=== PATIENT | female | born 1985 | race Caucasian/White ===

== ENCOUNTER → 2019-09-02 | Outpatient (CLI) | payer BC ==
--- NOTE | 2019-09-02 12:52 | RADIOLOGY REPORT (SQ) ---
EXAM DESCRIPTION: CHEST PA/LATERAL IMAGES COMPLETED DATE/TIME: 09/02/2019 12:16 pm REASON FOR STUDY: OTHER CHEST PAIN COMPARISON: None. EXAM PARAMETERS: NUMBER OF VIEWS: two views TECHNIQUE: Digital Frontal and Lateral radiographic views of the chest acquired. RADIATION DOSE: NA LIMITATIONS: none FINDINGS: LUNGS AND PLEURA: No opacities, masses or pneumothorax. No pleural effusion. MEDIASTINUM AND HILAR STRUCTURES: No masses or contour abnormalities. HEART AND VASCULAR STRUCTURES: Heart normal size. No evidence for failure. BONES: No acute findings. HARDWARE: None in the chest. OTHER: No other significant finding. IMPRESSION: NO SIGNIFICANT RADIOGRAPHIC FINDING IN THE CHEST. TECHNICAL DOCUMENTATION: JOB ID: [id number] 2010 [employer]- All Rights Reserved Reading location - IP/workstation name: [email or web address]
--- NOTE | 2019-09-02 22:20 | EKG REPORT ---
SEVERITY:- ABNORMAL ECG - SINUS RHYTHM LEFT ATRIAL ABNORMALITY : Confirmed by: Kecia Randall 02-Sep-2019 22:19:26
== END ==
LOC: OD 11:05
PROVIDERS: ATTEND Nurse Practitioner Family
DX: R07.89 Other chest pain (principal)
CPT/HCPCS: 71046; 93005; 93010

== ENCOUNTER → 2019-09-16 | Outpatient (CLI) | payer BC ==
--- NOTE | 2019-09-16 18:52 | XCELERA REPORT ---
[address] [address] Transthoracic Echocardiogram Report Name: SASKIA HOLLIS Age: 33 yrs Gender: Female : 1985 Patient Status: Outpatient Patient Location: Study Date: 09/16/2019 02:22 PM Height: 63 in Weight: 125 lb BSA: 1.6 m2 Reason For Study: ABNORMAL EKG Ordering Physician: MAIK BARRERA Performed By: Zulma Downing Interpretation Summary Suboptimal study due to poor acoustic window and lung interference. No LVH, normal LVEF with EF about 60-65% by visual analysis, probable LVDD (mild), and possible Apical and mid anterior wall and IVS hypokinesis, without LV enlargement (segmental wall motion abnormality incomplete analysis). No LV dilatation. RH( RA and RV) is normal size, though poorly seen, RVEF likely normal based on TAPSE . MMode/2D Measurements & Calculations RVDd: 2.0 cm LVIDd: 4.4 cm FS: 35.3 % Ao root diam: 1.7 cm IVSd: 0.87 cm LVIDs: 2.8 cm EDV(Teich): 87.1 ml LVPWd: 0.87 cm ESV(Teich): 30.6 ml Ao root area: 2.3 cm2 LA dimension: 2.4 cm EF(Teich): 64.9 % Doppler Measurements & Calculations MV E max doe: MV P1/2t max doe: Ao V2 max: LV V1 max P.8 cm/sec 111.6 cm/sec 103.2 cm/sec 2.5 mmHg MV A max doe: MV P1/2t: 63.6 msec Ao max P.3 mmHg LV V1 max: 68.2 cm/sec MVA(P1/2t): 3.5 cm2 79.0 cm/sec MV E/A: 1.2 MV dec slope: 514.0 cm/sec2 MV dec time: 0.13 sec PA V2 max: TR max doe: MV P1/2t-pr_phl: 60.3 cm/sec 205.5 cm/sec 63.6 msec PA max PG: TR max P.9 mmHg 1.5 mmHg Left Ventricle The left ventricle is normal in size. There is normal left ventricular wall thickness. LV EF is 65%. Doppler measurements suggest impaired left ventricular relaxation, which is associated with grade I/IV or mild diastolic dysfunction. There is septal wall mild hypokinesis. There is mid to distal anterior wall mild hypokinesis. There is no thrombus. Right Ventricle The right ventricle is grossly normal size. The right ventricular systolic function is normal. Atria The right atrium is normal. The left atrial size is normal. There is no Doppler evidence for an interatrial shunt. Mitral Valve The mitral valve leaflets appear normal. There is no evidence of stenosis, fluttering, or prolapse. There is no evidence of mitral valve prolapse. There is no mitral valve stenosis. There is a mild amount of mitral regurgitation. Aortic Valve The aortic valve is not well visualized secondary to technical limitations. There is no aortic valvular vegetation. There is no aortic valve stenosis. No aortic regurgitation is present. Tricuspid Valve The tricuspid valve is not well visualized secondary to technical limitations. There is no tricuspid stenosis. There is a trace or physiologic amount of tricuspid regurgitation. Right ventricular systolic pressure is normal. Pulmonic Valve The pulmonic valve is not well visualized. Great Vessels The aortic root is not well visualized but is probably normal size. Effusions Minimal pericardial effusion. I WMSI = 1.25 % Normal = 75 Segments Size X - Cannot 2 - 4 - 1-2 small Interpret 1 - Normal Hypokinetic 3 - AkineticDyskinetic 3-5 moderate 5 - 6-14 large Aneurysmal 15-16 diffuse : MAIK BARRERA, Pankaj
== END ==
LOC: SP 13:37
PROVIDERS: ATTEND Nurse Practitioner Family
DX: R94.31 Abnormal electrocardiogram [ECG] [EKG] (principal)
CPT/HCPCS: 93306